=== PATIENT | male | born 2000 | race Caucasian/White ===

== ENCOUNTER 2019-03-30 23:24 | Emergency (ER) | payer MEDICAID ==
[~2019-03-30] VITALS: Ht 187.9 cm; Wt 77.1 kg
== END 2019-03-31 01:41 | disposition home or self-care (01) ==
LOC: ED 23:24
DX: B34.9 Viral infection, unspecified (principal); Z88.1 Allergy status to other antibiotic agents

== ENCOUNTER 2021-01-25 16:12 | Emergency (ER) | payer SELFPAY ==
[~2021-01-25] VITALS: Ht 190.5 cm; Wt 66.2 kg
[2021-01-25] MEDS ORDERED: IBUPROFEN600 MG PO (20:43)
== END 2021-01-25 22:01 | disposition home or self-care (01) ==
LOC: ED 16:12
DX: S52.611A Displaced fracture of right ulna styloid process, initial encounter for closed fracture (principal); S52.511A Displaced fracture of right radial styloid process, initial encounter for closed fracture; Z88.1 Allergy status to other antibiotic agents; W51.XXXA Accidental striking against or bumped into by another person, initial encounter; Y92.69 Other specified industrial and construction area as the place of occurrence of the external cause; Y93.89 Activity, other specified; Y99.8 Other external cause status

== ENCOUNTER 2024-04-13 12:01 | Emergency (ER) | payer SELFPAY ==
[~2024-04-13] VITALS: Wt 68.9 kg
[~2024-04-13 12:01] MED LIST: IBUPROFEN600 MG PO
[2024-04-13] MEDS ORDERED: PREDNISONE20 M1 PO (12:38)
[2024-04-13] MEDS ORDERED: methylPREDNISolone sod succ 125 MG VIAL IM ONE (12:40)
== END 2024-04-13 12:54 | disposition home or self-care (01) ==
LOC: ED 12:01
DX: L23.7 Allergic contact dermatitis due to plants, except food (principal); Z88.1 Allergy status to other antibiotic agents

== ENCOUNTER 2024-06-25 20:18 | Emergency (ER) | payer SELFPAY ==
[~2024-06-25 20:18] MED LIST changes: +PREDNISONE20 M1 PO
[2024-06-25] MEDS ORDERED: Albuterol Sulf/Ipratropium 3 ML VIAL NEB ONE (20:40)
[2024-06-25] MEDS ORDERED: methylPREDNISolone sod succ 125 MG VIAL IM ONE (20:40)
[2024-06-25] MEDS ORDERED: PREDNISONE10 MG PO (21:53)
== END 2024-06-25 21:55 | disposition home or self-care (01) ==
LOC: ED 20:18
DX: J45.909 Unspecified asthma, uncomplicated (principal); Z20.822 Contact with and (suspected) exposure to COVID-19; Z88.1 Allergy status to other antibiotic agents

== ENCOUNTER 2024-07-14 15:17 | Emergency (ER) | payer SELFPAY ==
[~2024-07-14] VITALS: Ht 187.9 cm; Wt 68.0 kg
[~2024-07-14 15:17] MED LIST changes: +PREDNISONE10 MG PO
[2024-07-14] MEDS ORDERED: AMOX-CLAV 875-1 EACH PO (16:14)
== END 2024-07-14 16:23 | disposition home or self-care (01) ==
LOC: ED 15:17
DX: J02.9 Acute pharyngitis, unspecified (principal); J45.909 Unspecified asthma, uncomplicated; Z88.1 Allergy status to other antibiotic agents

== ENCOUNTER 2024-10-11 16:48 | Emergency (ER) | payer SELFPAY ==
[~2024-10-11] VITALS: Wt 72.6 kg
[~2024-10-11 16:48] MED LIST changes: +AMOX-CLAV 875-1 EACH PO
[2024-10-11 18:23] LABS: BASO # 0.1 10*3/uL (0.0-0.1); BASO % 0.8 % (0.0-1.0); EOS # 0.4 10*3/uL (0.0-0.4); EOS % 3.6 % (1.0-4.0); HEMATOCRIT 44.6 % (42.0-52.0); MEAN CELL VOLUME 88.7 fl (80.0-94.0); MEAN CORPUSCULAR HGB 30.2 pg (27.0-31.0); MEAN CORPUSCULAR HGB CONC 34.1 g/dl (33.0-37.0); MEAN PLATELET VOLUME 10.2 fl (9.6-12.3); MONO # 0.5 10*3/uL (0.1-1.0); MONO % 4.9 % (3.0-9.0); NEUT # 6.8 10*3/uL (2.3-7.9); NEUT % 65.3 % (47.0-73.0); PLATELET COUNT AUTOMATED 240 10*3/uL (130-400); RED BLOOD COUNT 5.03 10*6/uL (4.50-5.90); RED CELL DISTRI WIDTH 11.5 % (0-14.5); WHITE BLOOD COUNT 10.5 10*3/uL (4.8-10.8)
[2024-10-11 18:47] LABS: BUN 14 mg/dl (9-23); CHLORIDE 105 mmol/L (98-107); POTASSIUM 4.5 mmol/L (3.4-5.1)
[2024-10-11] MEDS ORDERED: Amoxicillin/Clavulanate Pota 875 MG TAB PO ONE (20:35)
[2024-10-11] MEDS ORDERED: methylPREDNISolone sod succ 125 MG VIAL IM ONE (20:35)
[2024-10-11] MEDS ORDERED: AMOX-CLAV 875-1 EACH PO (20:36)
== END 2024-10-11 20:52 | disposition home or self-care (01) ==
LOC: ED 16:48
PROVIDERS: Nurse Practitioner Family
DX: M94.0 Chondrocostal junction syndrome [Tietze] (principal); J98.4 Other disorders of lung; J45.909 Unspecified asthma, uncomplicated; Z79.899 Other long term (current) drug therapy; Z88.1 Allergy status to other antibiotic agents

== ENCOUNTER 2024-12-23 23:54 | Emergency (ER) | payer SELFPAY ==
[~2024-12-23] VITALS: Ht 185.4 cm; Wt 72.6 kg
[2024-12-24 00:35] LABS: BASO # 0.1 10*3/uL (0.0-0.1); BASO % 0.9 % (0.0-1.0); EOS # 0.4 10*3/uL (0.0-0.4); EOS % 6.5 % (1.0-4.0); HEMATOCRIT 42.7 % (42.0-52.0); MEAN CELL VOLUME 88.2 fl (80.0-94.0); MEAN CORPUSCULAR HGB 30.2 pg (27.0-31.0); MEAN CORPUSCULAR HGB CONC 34.2 g/dl (33.0-37.0); MEAN PLATELET VOLUME 10.3 fl (9.6-12.3); MONO # 0.4 10*3/uL (0.1-1.0); MONO % 6.1 % (3.0-9.0); NEUT # 3.3 10*3/uL (2.3-7.9); NEUT % 48.5 % (47.0-73.0); PLATELET COUNT AUTOMATED 227 10*3/uL (130-400); RED BLOOD COUNT 4.84 10*6/uL (4.50-5.90); WHITE BLOOD COUNT 6.8 10*3/uL (4.8-10.8)
[2024-12-24] MEDS ORDERED: IOHEXOL 300 MG/ML 100 ML VIAL IV ONE (00:40)
[2024-12-24 00:49] LABS: BUN 17 mg/dl (9-23); CHLORIDE 105 mmol/L (98-107); POTASSIUM 3.8 mmol/L (3.4-5.1)
[2024-12-24] MEDS ORDERED: NAPROSYN500 MG PO (03:58)
== END 2024-12-24 04:06 | disposition home or self-care (01) ==
LOC: ED 23:54
PROVIDERS: Emergency Medicine
DX: R59.1 Generalized enlarged lymph nodes (principal); R91.8 Other nonspecific abnormal finding of lung field; J45.909 Unspecified asthma, uncomplicated; Z79.899 Other long term (current) drug therapy; Z88.1 Allergy status to other antibiotic agents